=== PATIENT | male | born 1970 | race Caucasian/White ===

== ENCOUNTER → 2017-01-28 | Outpatient (CLI) | payer BC | END | disposition disaster alternative care site (69) | LOC: GRAD 01-19 08:00 | DX: M54.41 Lumbago with sciatica, right side (principal); M51.26 Other intervertebral disc displacement, lumbar region; M43.17 Spondylolisthesis, lumbosacral region; R20.0 Anesthesia of skin | CPT/HCPCS: A9577 ==